=== PATIENT | female | born 1980 ===

== ENCOUNTER 2021-07-26 14:27 | Emergency (ER) | payer SELFPAY ==
[2021-07-26 14:52] VITALS: BP 143/92
--- NOTE | 2021-07-26 14:55 | Event Note ---
Chief complaint: "I got hot. I passed out." HPI: This is a 41-year-old female with a significant past medical history who presents with syncopal episode s1. initial symptoms of feeling flushed hot dizzy. She got up and passed out. She returned to her chair she still felt faint. She ate waffles just prior to arriving to the hair salon. EMS called. Due to anticipated delay in transfer, drove patient to the emergency department. She is currently not taking any contraception. There is a possibly of . She has been attempting to get . She has had breast discharge on the right for 3 days. She has a follow-up appointment this upcoming week. She denies headache, fever, chest pain, shortness of breath, abdominal pain, vomiting leg pain. Family history: Breast cancer
[2021-07-26 15:46] LABS: Basophils # (Auto) 0.1 K/mm3 (0.0-0.1); Basophils % (Auto) 0.8 % (0.0-1.8); Eosinophils # (Auto) 0.1 K/mm3 (0.0-0.4); Hematocrit 36.4 % (30.3-42.9); Lymphocytes # (Auto) 1.6 K/mm3 (1.2-5.4); Lymphocytes % (Auto) 17.8 % (13.4-35.0); Mean Corpuscular HGB Conc 33 % (30-34); Mean Corpuscular Volume 72 fl (79-97); Monocytes # (Auto) 0.6 K/mm3 (0.0-0.8); Monocytes % (Auto) 6.3 % (0.0-7.3); Platelet Count 265 K/mm3 (140-440); Red Blood Count 5.07 M/mm3 (3.65-5.03); Red Cell Distribution Width 18.3 % (13.2-15.2)
[2021-07-26 16:15] LABS: BUN/Creatinine Ratio 10; Blood Urea Nitrogen 10 mg/dL (7-17); Calcium 9.1 mg/dL (8.4-10.2); Hemolysis Index 3
--- NOTE | 2021-07-28 14:19 | Electrocardiograph Report ---
[facility] Test Date: 2021-07-26 Test Time: 14:58:41 Pat Name: ESTEBAN ORO Department: Room: Gender: F [employer]er: KRISS : 1980 Requested By: RUBY JACK Order Number: [id number] Reading MD: Desirae Fierro Measurements Intervals [place] Rate: 57 P: 41 NC: 171 QRS: 62 QRSD: 97 T: 40 QT: 414 QTc: 402 Interpretive Statements Sinus bradycardia No previous ECG available for comparison Electronically Signed On 07-28-2021 14:19:18 EDT by Desirae Fierro
--- NOTE | 2021-07-28 14:21 | Electrocardiograph Report ---
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
== END 2021-07-26 19:52 | disposition left against medical advice (07) ==
LOC: ED 14:27
DX: Z00.8 Encounter for other general examination (principal); Z53.21 Procedure and treatment not carried out due to patient leaving prior to being seen by health care provider
CPT/HCPCS: 36415; 80048; 84703; 85025; 93005